=== PATIENT | female | born 1960 | race Caucasian/White ===

== ENCOUNTER 2017-04-14 12:00 | Day surgery (SDC) | payer OTHER ==
[~2017-04-14] VITALS: Ht 172.7 cm; Wt 86.2 kg
[~2017-04-14 12:00] MED LIST: ASPIRIN EC325 MG PO; ESTRADIOL1 MG PO; LEXAPRO10 MG PO; METFORMIN HCL500 MG PO; OMEPRAZOLE20 MG PO; SIMVASTATIN80 MG PO; VITAMIN C500 M3 PO
[2017-04-14] MEDS ORDERED: CRESTOR10 MG PO (12:16)
[2017-04-14] MEDS ORDERED: VITAMIN D2000 UNIT PO (12:17)
--- NOTE | 2017-04-14 13:55 | NUR ---
04/14/17 1355 Celeste Jose 1347 RESP EVEN AND UNLABORED. PT TALKING. AWAKE OFF AND ON. REORIENTED TO PACU. 1350 PT TURNED ON HER BACK.
--- NOTE | 2017-04-16 13:48 | OR ---
[facility] [address], [place] [address] Signed DATE OF OPERATION: 04/14/2017 SURGEON: Jess Garcia MD PREOPERATIVE DIAGNOSIS: Persistent constipation and painless rectal bleeding. POSTOPERATIVE DIAGNOSIS: Scattered diverticula sigmoid, otherwise normal. PROCEDURE: Total colonoscopy to cecum. ANESTHESIA: Intravenous sedation with fentanyl 100 mcg, Versed 9 mg. INDICATION: This 56-year-old white woman is a patient of Nitza Parks and has complaints of "super constipation." This has been longstanding. She has had associated nonpainful rectal bleeding and occasional protruded hemorrhoids from time to time. She has been taking Metamucil. Sigmoidoscopy in the was considered to be normal and diagnosis of "irritable bowel" was made. She has had difficulty with constipation more or less since age 8. She underwent colonoscopy in 2014, where she was noted to have polyps excised. She is admitted at this time to undergo colonoscopy to better characterize her problem, understanding the risks of bleeding, infection, and perforation. FINDINGS: The prep was good. Complete colonoscopy was undertaken of the cecum. The colon seemed impressively elongated. There were few scattered diverticula of the sigmoid, but the remaining colon was otherwise normal. There was no sign of abnormal dilation of the colon despite its long length. I saw no evidence of active bleeding. No internal hemorrhoidal problem or anything of that sort. DESCRIPTION OF PROCEDURE: The patient was brought to the endoscopy suite and placed in the lateral decubitus position, given intravenous sedation to the point of slurred speech and nystagmus. Digital rectal examination was normal. An Olympus video colonoscope was passed in the rectum and manipulated throughout the colon and ultimately requiring abdominal wall stabilization, as the colon appeared impressively long compared to normal. Ultimately, the cecum was well visualized. Irrigation was undertaken as needed. The ileocecal Electronically Signed By: JESS GARCIA MD 04/16/17 1348 PATIENT NAME: AMADRO RAZA OPERATIVE REPORT DATE OF : 56 PHYSICIAN: JESS GARCIA MD REPORT #: [id number] REPORT IS CONFIDENTIAL AND NOT TO BE RELEASED WITHOUT AUTHORIZATION [facility] [address], [place] [address] Signed valve appeared normal. Scope was withdrawn from that point. Examination throughout showed no sign of polyps or colitis, but did show a few diverticula of the sigmoid and left colon. Further withdrawal of scope allowed for retroflexed view in the rectum, which was essentially normal. The scope was removed. 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 I would recommend at this time Citrucel one scoop daily as well as MiraLAX one dose daily. If she is not improved on her constipation, she will let me know and additional measures might be employed. MD VAN Azar/MICHAEL /[id number] cc: Nitza Parks PA-C Electronically Signed By: JESS GARCIA MD 04/16/17 1348 PATIENT NAME: AMADOR RAZA Elizabeth OPERATIVE REPORT DATE OF : 56 PHYSICIAN: JESS GARCIA MD REPORT #: [id number] REPORT IS CONFIDENTIAL AND NOT TO BE RELEASED WITHOUT AUTHORIZATION
== END 2017-04-14 14:44 | disposition home or self-care (01) ==
LOC: DS 12:00 → OPS 12:00 → DS 14:00 → OPS 14:44
PROVIDERS: Surgery
PROC: 0DJD8ZZ Inspection of Lower Intestinal Tract, Via Natural or Artificial Opening Endoscopic (ICD-10-PCS; principal; 2017-04-14 13:00)
DX: K57.30 Diverticulosis of large intestine without perforation or abscess without bleeding (principal); E11.9 Type 2 diabetes mellitus without complications; E78.00 Pure hypercholesterolemia, unspecified; F32.9 Major depressive disorder, single episode, unspecified; Z86.010 Personal history of colon polyps; Z88.2 Allergy status to sulfonamides; Z88.8 Allergy status to other drugs, medicaments and biological substances; Z87.891 Personal history of nicotine dependence; Z90.89 Acquired absence of other organs; Z90.49 Acquired absence of other specified parts of digestive tract; Z90.710 Acquired absence of both cervix and uterus; Z98.890 Other specified postprocedural states; Z99.89 Dependence on other enabling machines and devices; Z79.899 Other long term (current) drug therapy
CPT/HCPCS: 99153; G0500; J2250; J3010; J7120